=== PATIENT | female | born 1965 | race Caucasian/White ===

== ENCOUNTER 2016-08-03 20:23 | Emergency (ER) | payer MEDICAID ==
[~2016-08-03] VITALS: Ht 162.6 cm; Wt 98.0 kg
[2016-08-03 20:27] VITALS: BP 103/67
--- NOTE | 2016-08-03 20:57 | NUR ---
Patient ambulated to bed 06.
--- NOTE | 2016-08-03 21:05 | NUR ---
51Y/F PATIENT PRESENTS TO ED WITH C/O FACIAL SWELLING X 1 DAY . PT STATES FACE SWALLEN AFTER WOKE UP THIS MORNING, DENIES ANY ALLERGY . DENIES N/V/D; SKIN IS PINK/WARM/DRY; AAOX4 WITH EVEN AND STEADY GAIT; LUNGS CLEAR BL; HR EVEN AND REGULAR; PT DENIES ANY FEVER, CP, SOB, OR COUGH AT THIS TIME; PATIENT STATES PAIN OF 7/10 AT THIS TIME; VSS; PATIENT POSITIONED FOR COMFORT; HOB ELEVATED; BEDRAILS UP X2; BED DOWN. ER MD MADE AWARE OF PT STATUS.
--- NOTE | 2016-08-03 23:09 | NUR ---
Michaela lund in [facility] - 08/03/16 at [address] Addison evaluating patient at bedside.
--- NOTE | 2016-08-03 23:15 | NUR ---
Dr. Addison evaluating patient at bedside.
[2016-08-03] MEDS ORDERED: diphenhydrAMINE 50 MG/ML VIAL IVP ONE (23:20)
[2016-08-03] MEDS ORDERED: methylPREDNISolone SS 125 MG in WATER STERILE 2 ML IV ONE (23:20)
[2016-08-04 00:18] VITALS: BP 120/71
--- NOTE | 2016-08-04 00:18 | NUR ---
Patient discharged with v/s stable. Written and verbal after care instructions given and explained. Patient alert, oriented and verbalized understanding of instructions. Ambulatory with steady gait. All questions addressed prior to discharge. ID band removed. Patient advised to follow up with PMD. Rx of BENEDRYL 25 MG, MEDROL given. Patient educated on indication of medication including possible reaction and side effects. Opportunity to ask questions provided and answered.
== END 2016-08-04 00:18 | disposition home or self-care (01) ==
LOC: MED 20:23
DX: T78.3XXA Angioneurotic edema, initial encounter (principal)
CPT/HCPCS: 96374; 96375; 99284; J1200; J2930